=== PATIENT | male | born 1980 | race Asian ===

== ENCOUNTER 2017-08-31 09:41 | Emergency (ER) | payer OTHER ==
[~2017-08-31] VITALS: Ht 165.1 cm; Wt 85.7 kg
[2017-08-31 10:04] VITALS: BP 126/80
--- NOTE | 2017-08-31 10:37 | Emergency Room Report ---
History of Present Illness General Chief Complaint: Laceration Source: Patient Present Illness HPI Patient sliced his finger with a skiver box toe. He is right-handed and cut his left index finger. There was some bleeding that's been controlled. The patient believes his tetanus is less than 10 years. He initially wanted stitches then he wanted glue and then he finally said he doesn't want any of that because the bleeding is controlled. No numbness. Full ability to move. No major medical problems. 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[facility] [place] Nursing Documentation: PMH: Agreed; PSxH: Agreed Nursing Documentation-PMH Past Medical History: No Stated History Review of Systems Constitutional: Denies: fever Musculoskeletal: Reports: see HPI Skin: Reports: see HPI Neurological: Reports: see HPI Allergic: Reports: see HPI Physical Exam Vital Signs Date Time Temp Pulse Resp B/P (MAP) Pulse Ox O2 Delivery O2 Flow Rate FiO2 08/31/17 09:53 97.9 101 18 126/80 98 Room Air 97.9 General Appearance: well appearing, no apparent distress Head: normocephalic, atraumatic ENT: hearing grossly normal, normal voice Neck: full range of motion, supple Respiratory: no respiratory distress, speaking full sentences Musculoskeletal: normal range of motion Neurologic: alert, motor strength/tone normal, sensory intact, normal gait Psychiatric: mood/affect normal Skin: laceration - 1 cm L index finger Medical Decision Making Diagnostic Impression: Primary Impression: Laceration of left index finger Qualified Codes: S61.211A - Laceration without foreign body of left index finger without damage to nail, initial encounter ER Course Patient with laceration L index finger. Bleeding controlled. This is superficial and not needing sutures, however, needs closure. I offered Dermabond. He requests Steri-strips. Patient treated and improved. Patient stable for outpatient observation and treatment. Advised of wound treatment precautions. Last Vital Signs Date Time Temp Pulse Resp B/P (MAP) Pulse Ox O2 Delivery O2 Flow Rate FiO2 08/31/17 10:51 97.9 18 126/80 98 Room Air 97.9 08/31/17 09:53 101 Status: improved Disposition: HOME, SELF-CARE Condition: Improved Scripts Bacitracin (Bacitracin) 28.4 Gm Oint...g. 1 APPLIC TOPIC BID, #10 GM Prov: Yannick Medina M.D. 08/31/17 Referrals: NOT CHOSEN IPA/,REFERRING (PCP) Yannick Medina M.D. August 31, 2017 10:37
[2017-08-31] MEDS ORDERED: BACITRACIN15 GM TOPIC (10:42)
[2017-08-31 10:51] VITALS: BP 126/80
== END 2017-08-31 10:52 | disposition home or self-care (01) ==
LOC: EMR 10:33
DX: S61.211A Laceration without foreign body of left index finger without damage to nail, initial encounter (principal); W27.5XXA Contact with paper-cutter, initial encounter; Y92.239 Unspecified place in hospital as the place of occurrence of the external cause; Y99.0 Civilian activity done for income or pay
CPT/HCPCS: 99283

== ENCOUNTER 2018-06-12 07:10 | Emergency (ER) | payer OTHER ==
[~2018-06-12] VITALS: Ht 162.6 cm; Wt 72.6 kg
[~2018-06-12 07:10] MED LIST: BACITRACIN15 GM TOPIC
[2018-06-12] MEDS ORDERED: NKM (07:16)
--- NOTE | 2018-06-12 07:20 | NUR ---
ED Nurse Note: Pt came into the ER s/p getting a laceration on the left thumb from a thick box. Pt is complaining of 10/10 pain in the area whenever it is pressed on. A + O x4. Ambulatory,. Skin warm tot ouch. 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
[2018-06-12 07:22] VITALS: BP 140/95
--- NOTE | 2018-06-12 07:29 | Emergency Room Report ---
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 and he sustained a laceration to the medial aspect Of the thumb Denies any other wrist pain denies any elbow pain denies any other trauma Patient is able to flex and extend the finger itself Allergies: Coded Allergies: No Known Allergies (Unverified , 08/31/17) Patient History Past Medical History: see triage record Pertinent Family History: none Reviewed Nursing Documentation: PMH: Agreed; PSxH: Agreed Nursing Documentation-PMH Past Medical History: No Stated History Review of Systems All Other Systems: negative except mentioned in HPI Physical Exam Vital Signs Date Time Temp Pulse Resp B/P (MAP) Pulse Ox O2 Delivery O2 Flow Rate FiO2 06/12/18 07:14 97.5 112 18 153/99 98 Room Air Sp02 EP Interpretation: reviewed, normal General Appearance: well appearing, no apparent distress Head: normocephalic, atraumatic Eyes: bilateral eye PERRL, bilateral eye EOMI ENT: hearing grossly normal, normal pharynx Neck: supple Respiratory: no respiratory distress, no retraction, no accessory muscle use Musculoskeletal: other - Full flexion-extension of the thumb is intact appropriate against resistance Neurologic: alert, oriented x3, responsive Skin: other - Small approximately half centimeter semicircular laceration distal aspect of the left thumb well approximated Lymphatic: no adenopathy Procedures Splinting Splinting : Consent: Verbal Location: left thumb Pre-Made Type: metal Splint: finger Pre-Proc Neuro Vasc Exam: normal Post-Proc Neuro Vasc Exam: normal Patient Tolerated: Well Complications: None Laceration/Wound Repair Laceration/Wound Repair : Consent: Verbal Wound Location: upper extremity Wound's Depth, Shape: flap Wound Length (cm): 0 Wound Explored: clean Irrigated w/ Saline (ccs): 100 Wound Debrided: minimal Wound Repaired With: Dermabond Patient Tolerated: Well Complications: None - The area in question appears to be somewhat superficial, Dermabond closure was appropriate for the appearance Medical Decision Making Diagnostic Impression: Primary Impression: Laceration ER Course Patient has laceration of the finger as noted above using Dermabond tellers the procedure well had splint applied to decrease the chance of reopening and stable for close follow-up Last Vital Signs Date Time Temp Pulse Resp B/P (MAP) Pulse Ox O2 Delivery O2 Flow Rate FiO2 06/12/18 07:22 97.5 78 18 140/95 97 Room Air Status: improved Disposition: HOME, SELF-CARE Condition: Improved Referrals: NOT CHOSEN IPA/MD,REFERRING (PCP) Additional Instructions: Patient is provided with the discharge instructions notified to follow up with primary doctor in the next 2-3 days otherwise return to the er with any worsening symptoms. Please note that this report is being documented using QR Wild technology. This can lead to erroneous entry secondary to incorrect interpretation by the dictating instrument. Michael Kumar DO Jun 12, 2018 07:29
[2018-06-12 07:51] VITALS: BP 145/80
--- NOTE | 2018-06-12 07:51 | NUR ---
ER DISCHARGE NOTE: Patient is cleared to be discharged per ERMD, pt is aox4, on room air, with stable vital signs. pt was given dc and prescription instructions, pt was able to verbalize understanding, pt id band removed without complications. pt is able to ambulate with steady gait. pt took all belongings.
== END 2018-06-12 07:52 | disposition home or self-care (01) ==
LOC: EMR 07:15
DX: S61.012A Laceration without foreign body of left thumb without damage to nail, initial encounter (principal); W27.5XXA Contact with paper-cutter, initial encounter; Y92.89 Other specified places as the place of occurrence of the external cause
CPT/HCPCS: 99283